=== PATIENT | female | born 2000 | race Hispanic/Latino ===

== ENCOUNTER 2019-02-01 00:09 | Observation (INO) | payer MEDICAID ==
[~2019-02-01] VITALS: Ht 154.9 cm; Wt 107.0 kg
[2019-02-01 00:27] VITALS: BP 162/74
[2019-02-01] MEDS ORDERED: LACTATED RINGERS 1000ML IV PRN (00:30)
[2019-02-01 00:52] LABS: BILIRUBIN,URINE Negative (NEGATIVE); COLOR,URINE Yellow (YELLOW); GLUCOSE, URINE (UA) Negative (NEGATIVE); KETONES,URINE Negative (NEGATIVE); LEUKOCYTE ESTERASE ,URINE Negative (NEGATIVE); NITRATE,URINE Negative (NEGATIVE); OCCULT BLOOD,URINE Negative (NEGATIVE); PROTEIN,URINE Negative (NEGATIVE)
[2019-02-01 00:55] LABS: APPEARANCE,URINE CLEAR (CLEAR)
[2019-02-01 01:02] LABS: AMPHET/METH SCREEN,URINE NEGATIVE (NEGATIVE); BARBITURATE SCREEN, URINE NEGATIVE (NEGATIVE); BENZODIAZEPINES SCREEN,URINE NEGATIVE (NEGATIVE); CANNABINOID SCREEN,URINE NEGATIVE (NEGATIVE); COCAINE SCREEN,URINE NEGATIVE (NEGATIVE); OPIATE SCREEN,URINE NEGATIVE (NEGATIVE); PHENCYCLIDINE SCREEN,URINE NEGATIVE (NEGATIVE)
== END 2019-02-01 01:45 | disposition home or self-care (01) ==
LOC: EDH 00:09 → LDH 00:10
PROVIDERS: ADMIT Obstetrics & Gynecology; ATTEND Obstetrics & Gynecology
DX: O26.893 Other specified pregnancy related conditions, third trimester (principal); R10.9 Unspecified abdominal pain; Z3A.32 32 weeks gestation of pregnancy; Z79.899 Other long term (current) drug therapy
CPT/HCPCS: 80305; 81003; 99284; G0378 ×2

== ENCOUNTER 2019-02-18 16:39 | Observation (INO) | payer MEDICAID ==
[2019-02-18 17:26] LABS: APPEARANCE,URINE SL CLOUDY (CLEAR); BILIRUBIN,URINE NEGATIVE (NEGATIVE); COLOR,URINE YELLOW (YELLOW); GLUCOSE, URINE (UA) NEGATIVE (NEGATIVE); KETONES,URINE NEGATIVE (NEGATIVE); LEUKOCYTE ESTERASE ,URINE NEGATIVE (NEGATIVE); NITRATE,URINE POSITIVE (NEGATIVE); OCCULT BLOOD,URINE NEGATIVE (NEGATIVE); PROTEIN,URINE NEGATIVE (NEGATIVE); UROBILINOGEN,URINE 0.2 mg/dL (0.2-1.0)
[2019-02-18 17:34] LABS: BACTERIA,URINE Few /HPF (None Seen); RBC,URINE 0-1 /HPF (0-1); WBC,URINE 0-1 /HPF (0-1)
[2019-02-18 17:35] LABS: SQUAMOUS EPITHELIAL CELL,UR Few /HPF (0-2)
[2019-02-18 17:36] LABS: AMORPHOUS SEDIMENT,UR Few /LPF (None Seen)
== END 2019-02-18 19:45 | disposition home or self-care (01) ==
LOC: LDH 16:39
PROVIDERS: ADMIT Obstetrics & Gynecology; ATTEND Obstetrics & Gynecology
DX: O42.92 Full-term premature rupture of membranes, unspecified as to length of time between rupture and onset of labor (principal); Z3A.38 38 weeks gestation of pregnancy
CPT/HCPCS: 59025; 76815; 81001; G0378 ×3

== ENCOUNTER 2019-03-04 12:49 | Observation (INO) | payer MEDICAID, OTHER ==
[~2019-03-04] VITALS: Ht 157.5 cm; Wt 111.6 kg
[2019-03-04 14:22] LABS: BILIRUBIN,URINE NEGATIVE (NEGATIVE); COLOR,URINE YELLOW (YELLOW); GLUCOSE, URINE (UA) NEGATIVE (NEGATIVE); KETONES,URINE NEGATIVE (NEGATIVE); LEUKOCYTE ESTERASE ,URINE NEGATIVE (NEGATIVE); NITRATE,URINE POSITIVE (NEGATIVE); OCCULT BLOOD,URINE NEGATIVE (NEGATIVE); PH,URINE 7.5 (5.0-8.0); PROTEIN,URINE NEGATIVE (NEGATIVE); UROBILINOGEN,URINE 0.2 mg/dL (0.2-1.0)
[2019-03-04 14:23] LABS: APPEARANCE,URINE HAZY (CLEAR)
[2019-03-04 14:29] VITALS: BP 119/64
[2019-03-04 14:29] LABS: BACTERIA,URINE Few /HPF (None Seen); RBC,URINE None Seen /HPF (0-1)
[2019-03-04] MEDS ORDERED: CEFTRIAXONE SODIUM 1 GM IM SCH (15:15)
[2019-03-04] MEDS ORDERED: LIDOCAINE HCL-MPF 1% 2ML VIAL ONE (15:30)
[2019-03-04] MEDS ORDERED: CEFTRIAXONE SODIUM 1 GM IVP ONE (16:00)
== END 2019-03-04 16:35 | disposition home or self-care (01) ==
LOC: LDH 12:49
PROVIDERS: ADMIT Obstetrics & Gynecology; ATTEND Obstetrics & Gynecology
DX: O62.9 Abnormality of forces of labor, unspecified (principal); O99.343 Other mental disorders complicating pregnancy, third trimester; F99 Mental disorder, not otherwise specified; Z3A.36 36 weeks gestation of pregnancy
CPT/HCPCS: 81001; 96372; G0378 ×4; J0696; J3490

== ENCOUNTER 2021-02-03 22:21 | Emergency (ER) | payer MEDICAID ==
[2021-02-03 23:02] LABS: BASOPHILS % (AUTO) 0.5 % (0.0-5.0); HEMATOCRIT 40.3 % (36-48); MEAN CORPUSCULAR HEMOGLOBIN 29.4 pg (27.0-33.0); NEUTROPHILS % (AUTO) 54.4 % (40.0-77.0); PLATELET COUNT (AUTO) 244 K/uL (130-400); RED BLOOD CELL COUNT(AUTO) 4.53 MIL/uL (4.00-5.50); RED CELL DISTRIBUTION WIDTH 12.3 % (11.0-15.5); WHITE BLOOD COUNT (AUTO) 9.5 K/uL (4.8-10.8)
[2021-02-03 23:10] LABS: CREATININE 0.7 mg/dL (0.5-1.5); POTASSIUM 3.5 mmol/L (3.5-5.1)
[2021-02-03 23:23] LABS: APPEARANCE,URINE Clear (CLEAR); BILIRUBIN,URINE Negative (NEGATIVE); COLOR,URINE Yellow (YELLOW); GLUCOSE, URINE (UA) Negative (NEGATIVE); KETONES,URINE Negative (NEGATIVE); LEUKOCYTE ESTERASE ,URINE Negative (NEGATIVE); NITRATE,URINE Negative (NEGATIVE); OCCULT BLOOD,URINE Negative (NEGATIVE); PH,URINE 5.5 (5.0-8.0); PROTEIN,URINE Negative (NEGATIVE)
[2021-02-03 23:36] LABS: ALBUMIN 3.8 g/dL (3.5-5.0)
== END 2021-02-04 00:14 | disposition home or self-care (01) ==
LOC: EDH 22:21
DX: Z34.90 Encounter for supervision of normal pregnancy, unspecified, unspecified trimester (principal)
CPT/HCPCS: 36415; 76801; 80053; 81003; 84702; 85025